=== PATIENT | female | born 1995 | race Two or more races ===

== ENCOUNTER 2020-01-29 18:32 | Emergency (ER) | payer OTHER ==
[~2020-01-29] VITALS: Ht 185.4 cm; Wt 70.3 kg
[2020-01-29 21:49] VITALS: BP 134/71
[2020-01-29 23:49] LABS: HEPATITIS B SURFACE ANTIGEN NEGATIVE
[2020-01-30 00:19] LABS: HEPATITIS A AB IGM NEGATIVE (NEGATIVE)
== END 2020-01-29 22:36 | disposition home or self-care (01) ==
LOC: ER 18:32
DX: S61.032A Puncture wound without foreign body of left thumb without damage to nail, initial encounter (principal); X58.XXXA Exposure to other specified factors, initial encounter; Y93.89 Activity, other specified; Y92.531 Health care provider office as the place of occurrence of the external cause
CPT/HCPCS: 36415; 86703; 86705; 86709; 86803; 87340; 99283

== ENCOUNTER 2020-04-08 16:39 | Emergency (ER) | payer OTHER ==
[~2020-04-08] VITALS: Ht 185.4 cm; Wt 77.0 kg
[2020-04-08 16:52] VITALS: BP 105/50
[2020-04-08] MEDS ORDERED: IBUPROFEN 600MG TABLET PO ONE (17:15)
== END 2020-04-08 17:37 | disposition home or self-care (01) ==
LOC: ER 16:39
DX: S16.1XXA Strain of muscle, fascia and tendon at neck level, initial encounter (principal); V43.52XA Car driver injured in collision with other type car in traffic accident, initial encounter; Y93.89 Activity, other specified; Y92.488 Other paved roadways as the place of occurrence of the external cause
CPT/HCPCS: 99282

== ENCOUNTER 2020-06-12 12:14 | Emergency (ER) | payer OTHER ==
[~2020-06-12] VITALS: Ht 185.4 cm; Wt 172.0 kg
[2020-06-12 13:50] VITALS: BP 129/79
== END 2020-06-12 14:12 | disposition home or self-care (01) ==
LOC: ER 12:14
DX: B34.9 Viral infection, unspecified (principal)
CPT/HCPCS: 71045; 81025; 99283

== ENCOUNTER 2022-05-29 00:24 | Emergency (ER) | payer MEDICAID, OTHER ==
[~2022-05-29] VITALS: Ht 185.4 cm; Wt 87.0 kg
[2022-05-29] MEDS ORDERED: BACITRACIN ZINC OINT UDPKT TOP ONE (01:15)
[2022-05-29] MEDS ORDERED: ACETAMINOPHEN 325MG TABLET PO ONE (01:15)
[2022-05-29] MEDS ORDERED: LIDOCAINE HCL 1% 20ML VIAL (Pyxis) INJ INFIL ONE (01:15)
[2022-05-29 02:51] VITALS: BP 122/73
== END 2022-05-29 02:51 ==
LOC: ER 00:24
DX: S60.453A Superficial foreign body of left middle finger, initial encounter (principal); X58.XXXA Exposure to other specified factors, initial encounter; Y93.89 Activity, other specified; Y92.89 Other specified places as the place of occurrence of the external cause; Y99.8 Other external cause status
CPT/HCPCS: 73140; 99284; J3490; Z7610

== ENCOUNTER 2023-04-18 23:56 | Emergency (ER) | payer OTHER ==
[~2023-04-18] VITALS: Ht 185.4 cm; Wt 89.9 kg
[2023-04-19 00:05] VITALS: BP 135/91
[2023-04-19] MEDS ORDERED: BACITRACIN ZINC OINT UDPKT TOP ONE (02:15)
[2023-04-19] MEDS ORDERED: KETOROLAC 60MG/2ML VIAL IM ONE (02:15)
[2023-04-19] MEDS ORDERED: CEPH500C2 MT (02:23)
[2023-04-19] MEDS ORDERED: T3 PO (02:23)
[2023-04-19] MEDS ORDERED: IBUP-2029 MT (02:23)
[2023-04-19] MEDS ORDERED: BO1 TP (02:23)
== END 2023-04-19 03:24 | disposition home or self-care (01) ==
LOC: ER 23:56
DX: S61.309A Unspecified open wound of unspecified finger with damage to nail, initial encounter (principal); W18.39XA Other fall on same level, initial encounter; Y93.89 Activity, other specified; Y92.89 Other specified places as the place of occurrence of the external cause; Y99.8 Other external cause status; M79.674 Pain in right toe(s)
CPT/HCPCS: 81025; 96372; 99283; J1885; Z7610